=== PATIENT | female | born 1935 | race Caucasian/White ===

== ENCOUNTER → 2019-05-02 | Outpatient (CLI) | payer MEDICARE, OTHER ==
[2019-05-02 11:17] LABS: POTASSIUM 4.5 MMOL/L (3.6-5.0)
[2019-05-02 11:18] LABS: ALBUMIN 4.1 GM/DL (3.2-4.5); BILIRUBIN,TOTAL 0.4 MG/DL (0.1-1.0); CALCIUM 9.3 MG/DL (8.5-10.1); CREATININE SERUM 1.09 MG/DL (0.60-1.30); TOTAL PROTEIN 7.2 GM/DL (6.4-8.2)
== END ==
LOC: LAB FS 08:22
PROVIDERS: ATTEND Family Medicine
DX: E78.5 Hyperlipidemia, unspecified (principal); E11.9 Type 2 diabetes mellitus without complications
CPT/HCPCS: 36415; 80053; 80061; 83036

== ENCOUNTER → 2019-09-23 | Outpatient (CLI) | payer MEDICARE, OTHER ==
[2019-09-23 09:00] LABS: BILIRUBIN,TOTAL 0.4 MG/DL (0.1-1.0); CALCIUM 9.5 MG/DL (8.5-10.1); CREATININE SERUM 1.09 MG/DL (0.60-1.30); POTASSIUM 4.8 MMOL/L (3.6-5.0); TOTAL PROTEIN 7.1 GM/DL (6.4-8.2)
[2019-09-23 09:01] LABS: ALBUMIN 3.9 GM/DL (3.2-4.5)
== END ==
LOC: LAB FS 08:00
PROVIDERS: ATTEND Family Medicine
DX: E03.9 Hypothyroidism, unspecified (principal); E11.9 Type 2 diabetes mellitus without complications; E78.5 Hyperlipidemia, unspecified
CPT/HCPCS: 36415; 80053; 80061; 83036; 84443

== ENCOUNTER → 2019-09-25 | Outpatient (CLI) | payer MEDICARE, OTHER ==
--- NOTE | 2019-09-25 11:40 | Diagnostic Imaging Report ---
INDICATION: Shortness of breath EXAM: PA and lateral chest FINDINGS: Heart size and pulmonary vascularity are normal. The lungs are clear. There are no effusions or pneumothoraces. IMPRESSION: 1. Negative chest. Dictated by: Dictated on workstation # [id number]
--- NOTE | 2019-09-25 11:50 | Diagnostic Imaging Report ---
EXAMINATION: Lumbar spine at 1113h. INDICATION: Back pain AP spot lateral and lateral views were obtained. There are no prior studies for comparison. There are bilateral pedicle screws in place at L4 and L5 and there is an interbody device at the L4-L5 level. The orthopedic hardware seems to be in good position. There is narrowing of the disc space at L4-L5. The other intervertebral spaces are fairly well maintained. The lateral view does show mild exaggeration of the normal lordosis of the lumbar spine. The lumbar vertebral body heights are within normal limits. There is a mild compression deformity of superior endplate of T12. I suspect this is long-standing in nature. There is no sign of a paraspinal mass. Surgical wires are seen coursing obliquely over the right upper quadrant. IMPRESSION: 1. There is no evidence for an acute bony abnormality. The mild compression deformity of T12 is most likely long-standing in nature. If previous exams are available they would be helpful for comparison. 2. The fusion of L4 and L5 appears stable. Dictated by: Dictated on workstation # [id number]
== END ==
LOC: RAD FS 10:57
PROVIDERS: ATTEND Family Medicine
DX: M48.061 Spinal stenosis, lumbar region without neurogenic claudication (principal); R06.02 Shortness of breath; M43.26 Fusion of spine, lumbar region
CPT/HCPCS: 71046; 72100

== ENCOUNTER → 2020-02-23 | Outpatient (CLI) | payer MEDICARE, OTHER | LOC: CARD 09:00 | PROVIDERS: ATTEND Internal Medicine Cardiovascular Disease | DX: I10 Essential (primary) hypertension (principal); E11.9 Type 2 diabetes mellitus without complications; M48.061 Spinal stenosis, lumbar region without neurogenic claudication; I70.213 Atherosclerosis of native arteries of extremities with intermittent claudication, bilateral legs; E78.5 Hyperlipidemia, unspecified; I34.0 Nonrheumatic mitral (valve) insufficiency | CPT/HCPCS: 93306 ==

== ENCOUNTER → 2020-03-02 | Outpatient (CLI) | payer MEDICARE, OTHER ==
[~2020-03-02] VITALS: Ht 162 cm; Wt 84.0 kg
[~2020-03-02] MED LIST: CATHETER FLUSH 10 ML SYR IV PRN; REGADENOSON 0.4 MG/5 ML SYR (LEXISCAN) IV ONE
[2020-03-02 08:55] VITALS: BP 177/78
[2020-03-02 09:23] VITALS: BP 177/80
[2020-03-02 09:26] VITALS: BP 189/84
--- NOTE | 2020-03-05 19:05 | STRESS TEST ---
DATE OF SERVICE: 03/02/2020 RESTING AND POST REGADENOSON TECHNETIUM-99M TETROFOSMIN SPECT CT IMAGING ORDERING PHYSICIAN: Dr. Spangler. PRIMARY PHYSICIAN: Dr. Haily Romero. CLINICAL DIAGNOSES: Shortness of breath, hypertension, hyperlipidemia, type 2 diabetes. Baseline images were carried out after injection of 10.89 mCi of technetium-99m Tetrofosmin. This was followed by 0.4 mg regadenoson and 31.2 mCi of technetium-99m Tetrofosmin for stress imaging. The electrocardiogram showed sinus rhythm at baseline. It did not change significantly with regadenoson infusion. The patient tolerated the procedure well. Review of images at rest and following stress does not indicate any distinct perfusion defects consistent with significant myocardial ischemia or infarction. Gated images show normal global left ventricular systolic function with normal regional wall motion. Left ventricular ejection fraction is calculated to be 74%. Left ventricular end diastolic volume is 26 mL. TID is absent (1.03). CONCLUSIONS: 1. No evidence of any significant myocardial ischemia or infarction. 2. Normal regional wall motion. 3. Normal global left ventricular systolic function with a calculated ejection fraction of 74%. Job ID: [id number] DocumentID: [id number] Dictated Date: 03/05/2020 15:17:52 Bonderizer Date: 03/05/2020 19:05:36 Dictated By: DEEDEE SPANGLER MD, MA, FACP, FACC,
== END ==
LOC: CARD 02-24 08:30
PROVIDERS: ATTEND Internal Medicine Cardiovascular Disease
DX: I10 Essential (primary) hypertension (principal); R06.02 Shortness of breath; E78.5 Hyperlipidemia, unspecified; E11.9 Type 2 diabetes mellitus without complications; M48.061 Spinal stenosis, lumbar region without neurogenic claudication; I70.213 Atherosclerosis of native arteries of extremities with intermittent claudication, bilateral legs
CPT/HCPCS: 78452; 93017; A9502

== ENCOUNTER → 2020-04-01 | Outpatient (CLI) | payer MEDICARE, OTHER ==
[2020-04-01 11:05] LABS: ALBUMIN 4.1 GM/DL (3.2-4.5); BILIRUBIN,TOTAL 0.4 MG/DL (0.1-1.0); CALCIUM 9.6 MG/DL (8.5-10.1); CREATININE SERUM 1.12 MG/DL (0.60-1.30); POTASSIUM 4.6 MMOL/L (3.6-5.0); TOTAL PROTEIN 7.1 GM/DL (6.4-8.2)
== END ==
LOC: LAB FS 08:10
PROVIDERS: ATTEND Family Medicine
DX: E11.9 Type 2 diabetes mellitus without complications (principal)
CPT/HCPCS: 36415; 80053

== ENCOUNTER 2020-07-09 06:55 | Emergency (ER) | payer MEDICARE, OTHER ==
[~2020-07-09] VITALS: Ht 162 cm; Wt 79.0 kg
--- NOTE | 2020-07-09 07:15 | ED General ---
General Chief Complaint: Cardiac/General Problems Stated Complaint: HIGH BLOOD PRESSURE Nursing Triage Note: ARRIVED VIA EMS FOR LEFT SIDED NECK PAIN AND HYPERTENSION. Nursing Sepsis Screen: No Definite Risk Source of Information: Patient History of Present Illness Date Seen by Provider: Jul 09, 2020 Time Seen by Provider: 06:52 Initial Comments PT ARRIVES VIA [facility] FROM HOME IN [place], [place] PT WOKE UP AT 0500 THIS AM WITH PAIN BEHIND LEFT EAR, LEFT LATERAL / POSTERIOR NECK, RADIATING DOWN LEFT SHOULDER AND DOWN LEFT ARM TOOK 2 ALEVE AND 2 BABY ASPIRIN AND METOPROLOL 25 MG AT 0500 PT HAS LONGSTANDING HYPERTENSION AND HAS BEEN PRESCRIBED METOPROLOL, BUT NEVER TAKES IT NO PARESTHESIAS OR MOTOR DEFICITS NO VISION CHANGES NO NAUSEA/VOMITING/DIARRHEA NO CHEST PAIN NO PALPITATIONS HAS SOME SHORTNESS OF BREATH ON EXERTION NO DIZZINESS NO SWEATS NO SWELLING IN LEGS/ FEET OR PAIN IN CALVES HAS HAD URINARY FREQUENCY AND SMALL AMOUNTS THIS AM SINCE WAKING NO FEVER OR RECENT ILLNESS DENIES ANY COVID-19 SYMPTOMS OR KNOWN EXPOSURE HAS NOT HAD COVID-19 VACCINE PCP: DR. MARK, IN [place] HAS SEEN DR. SAXENA IN PAST--STATES SHE "DOESN'T HAVE HEART PROBLEMS" Allergies and Home Medications Allergies Coded Allergies: oxycodone (Verified Allergy, Mild, 07/09/20) NAUSEA Vrkojcq-Lnt-Qnv Reductase Inhibitor (Verified Allergy, Unknown, 07/09/20) hydromorphone (Verified Allergy, Unknown, 07/09/20) "FELT TERRIBLE" meperidine (Verified Allergy, Unknown, 07/09/20) Home Medications Naproxen 500 Mg Tablet., 500 MG PO BID Prescribed by: MARCO ANTONIO URIBE on 07/09/20820 Sulfamethoxazole/Trimethoprim 1 Each Tablet, 1 EACH PO BID Prescribed by: MARCO ANTONIO URIBE on 07/09/20820 Patient Home Medication List Home Medication List Reviewed: Yes Review of Systems Review of Systems Constitutional: no symptoms reported; No chills, No diaphoresis, No dizziness, No fever, No malaise, No weakness EENTM: other (PAIN BEHIND LEFT EAR); No blurred vision, No double vision, No eye pain, No nose congestion, No throat pain Respiratory: No cough; dyspnea on exertion; No orthopnea, No short of breath Cardiovascular: No chest pain, No edema, No syncope Gastrointestinal: no symptoms reported; No abdominal pain, No diarrhea, No nausea, No vomiting Genitourinary: see HPI; No dysuria; frequency Musculoskeletal: see HPI, neck pain Skin: no symptoms reported Psychiatric/Neurological: See HPI; Denies Numbness, Denies Paresthesia, Denies Seizure, Denies Tingling, Denies Weakness Hematologic/Lymphatic: No Symptoms Reported Immunological/Allergic: no symptoms reported Past Yorrrfp-Tsjtjy-Bxxdtg Hx Past Med/Social Hx: Reviewed and Corrections made Patient Social History Alcohol Use: Denies Use Drug of Choice: DENIES Smoking Status: Never a Smoker Recent Infectious Disease Expo: No Recent Hopitalizations: No Past Medical History Surgeries: Yes Joint Replacement, Orthopedic Respiratory: No Cardiac: Yes High Cholesterol, Hypertension Neurological: No 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 SAXENA 03/02/20 CONCLUSIONS: 1. No evidence of any significant myocardial ischemia or infarction. 2. Normal regional wall motion. 3. Normal global left ventricular systolic function with a calculated ejection fraction of 74%. Physical Exam Vital Signs Vital Signs - First Documented 07/09/20 06:55 Temp 37.0 Pulse 96 Resp 16 B/P (MAP) 245/116 (159) Pulse Ox 95 O2 Delivery Room Air Capillary Refill : Less Than 3 Seconds Height, Weight, BMI Height: '" Weight: lbs. oz. kg; 30.00 BMI Method: General Appearance: No Apparent Distress, WD/WN, Other (AMBULATES ON HER OWN TO BATHROOM ON ARRIVAL) HEENT: PERRL/EOMI, TMs Normal, Normal ENT Inspection, Pharynx Normal, Moist Mucous Membranes Neck: Full Range of Motion, Supple; No Carotid Bruit, No JVD; Tender Lateral (TENDERNESS TO LEFT LATERAL NECK--PALPATION DRAMATICALLY REPRODUCES PAIN ) Respiratory: Normal Breath Sounds, No Accessory Muscle Use, No Respiratory Distress Cardiovascular: Regular Rate, Rhythm, No Edema, No JVD, No Murmur, Normal Peripheral Pulses Gastrointestinal: Normal Bowel Sounds, No Organomegaly, No Pulsatile Mass, Non Tender, Soft Back: No CVA Tenderness Extremity: Normal Capillary Refill, Normal Inspection, Normal Range of Motion, Non Tender, No Calf Tenderness, No Pedal Edema Neurologic/Psychiatric: Alert, Oriented x3, No Motor/Sensory Deficits, Normal Mood/Affect, 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 II-XII Norm as Tested; No Abnormal Cerebellar Tests Skin: Normal Color, Warm/Dry; No Rash Progress/Results/Core Measures Suspected Sepsis Recent Fever Within 48 Hours: No Infection Criteria Present: None New/Unexplained Altered Menta: No Sepsis Screen: No Definite Risk SIRS Temperature: Pulse: 96 Respiratory Rate: 16 Laboratory Tests 07/09/20 07:14: White Blood Count 8.6 Blood Pressure 245 /116 Mean: 159 Laboratory Tests 07/09/20 07:14: Creatinine 1.16, Platelet Count 259, Total Bilirubin 0.4 Results/Orders Lab Results Laboratory Tests Test 07/09/20 07:14 07/09/20 07:17 Range/Units White Blood Count 8.6 4.3-11.0 10^3/uL Red Blood Count 5.05 3.80-5.11 10^6/uL Hemoglobin 13.4 11.5-16.0 g/dL Hematocrit 43 35-52 % Mean Corpuscular Volume 85 80-99 fL Mean Corpuscular Hemoglobin 27 25-34 pg Mean Corpuscular Hemoglobin Concent 31 L 32-36 g/dL Red Cell Distribution Width 14.1 10.0-14.5 % Platelet Count 259 130-400 10^3/uL Mean Platelet Volume 10.1 9.0-12.2 fL Immature Granulocyte % (Auto) 1 % Neutrophils (%) (Auto) 72 42-75 % Lymphocytes (%) (Auto) 16 12-44 % Monocytes (%) (Auto) 8 0-12 % Eosinophils (%) (Auto) 3 0-10 % Basophils (%) (Auto) 1 0-10 % Neutrophils # (Auto) 6.2 1.8-7.8 10^3/uL Lymphocytes # (Auto) 1.4 1.0-4.0 10^3/uL Monocytes # (Auto) 0.6 0.0-1.0 10^3/uL Eosinophils # (Auto) 0.3 0.0-0.3 10^3/uL Basophils # (Auto) 0.1 0.0-0.1 10^3/uL Immature Granulocyte # (Auto) 0.1 0.0-0.1 10^3/uL Sodium Level 139 135-145 MMOL/L Potassium Level 4.1 3.6-5.0 MMOL/L Chloride Level 104 98-107 MMOL/L Carbon Dioxide Level 23 21-32 MMOL/L Anion Gap 12 5-14 MMOL/L Blood Urea Nitrogen 26 H 7-18 MG/DL Creatinine 1.16 0.60-1.30 MG/DL Estimat Glomerular Filtration Rate 44 BUN/Creatinine Ratio 22 Glucose Level 158 H 70-105 MG/DL Calcium Level 8.9 8.5-10.1 MG/DL Corrected Calcium 9.0 8.5-10.1 MG/DL Magnesium Level 2.0 1.6-2.4 MG/DL Total Bilirubin 0.4 0.1-1.0 MG/DL Aspartate Amino Transf (AST/SGOT) 19 5-34 U/L Alanine Aminotransferase (ALT/SGPT) 18 0-55 U/L Alkaline Phosphatase 90 40-136 U/L Total Creatine Kinase 56 29-168 U/L Creatine Kinase MB 1.6 <6.6 NG/ML Myoglobin 70.0 10.0-92.0 NG/ML Troponin I < 0.028 <0.028 NG/ML B-Type Natriuretic Peptide 168.7 H <100.0 PG/ML Total Protein 7.1 6.4-8.2 GM/DL Albumin 3.9 3.2-4.5 GM/DL Urine Color YELLOW Urine Clarity CLEAR Urine pH 7.5 5-9 Urine Specific [place] 1.025 H 1.016-1.022 Urine Protein 2+ H NEGATIVE Urine Glucose (UA) NEGATIVE NEGATIVE Urine Ketones NEGATIVE NEGATIVE Urine Nitrite NEGATIVE NEGATIVE Urine Bilirubin NEGATIVE NEGATIVE Urine Urobilinogen 0.2 < = 1.0 MG/DL Urine Leukocyte Esterase NEGATIVE NEGATIVE Urine RBC (Auto) TRACE-I NEGATIVE Urine RBC 0-2 /HPF Urine WBC 5-10 H /HPF Urine Squamous Epithelial Cells 2-5 /HPF Urine Crystals PRESENT H /LPF Urine Calcium Oxalate Crystals RARE H /LPF Urine Bacteria FEW H /HPF Urine Casts NONE /LPF Urine Mucus NEGATIVE /LPF Urine Culture Indicated YES My Orders Orders - MARCO ANTONIO URIBE DO Ed Iv/Invasive Line Start (07/09/20 06:56) Ekg Tracing (07/09/20 06:56) Monitor-Rhythm Ecg Trace Only (07/09/20 06:56) Cbc With Automated Diff (07/09/20 06:56) Comprehensive Metabolic Panel (07/09/20 06:56) Magnesium (07/09/20 06:56) Ua Culture If Indicated (07/09/20 06:56) Ct Head/Cervical Spine Wo (07/09/20 06:56) Chest 1 View, Ap/Pa Only (07/09/20 06:56) BNP (07/09/20 07:22) Creatine Kinase (07/09/20 07:22) Creatine Kinase Mb (07/09/20 07:22) Myoglobin Serum (07/09/20 07:22) Troponin I (07/09/20 07:22) Urine Culture (07/09/20 07:17) Ketorolac Injection (Toradol Injection) (07/09/20 08:15) Hydralazine Injection (Apresoline Inject (07/09/20 08:15) Hydralazine Injection (Apresoline Inject (07/09/20 08:30) Medications Given in ED Current Medications Medications Dose Ordered Sig/Naya Route Start Time Stop Time Status Last Admin Dose Admin Hydralazine HCl 5 mg ONCE ONCE IV 07/09/20 08:30 07/09/20 08:31 DC 07/09/20 08:22 5 MG Ketorolac Tromethamine 30 mg ONCE ONCE IVP 07/09/20 08:15 07/09/20 08:16 DC 07/09/20 08:22 30 MG Vital Signs/I&O 07/09/20 07/09/20 06:55 08:44 Temp 37.0 Pulse 96 75 Resp 16 16 B/P (MAP) 245/116 (159) 177/79 Pulse Ox 95 98 O2 Delivery Room Air Room Air Capillary Refill : Less Than 3 Seconds Blood Pressure Mean: 159 Progress Note : Progress Note BP STARTING TO COME DOWN ON IT'S OWN, GIVEN HYDRALAZINE 5 MG IV, BP STILL ELEVATED AT 178 SYSTOLIC GIVEN TORADOL FOR PAIN WITH IMPROVEMENT NO DETERIORATION IN PT'S CONDITION DURING ER STAY ECG Initial ECG Impression Date: Jul 09, 2020 Initial ECG Impression Time: 07:10 Initial ECG Rate: 86 Initial ECG Rhythm: Normal Sinus Diagnostic Imaging Comments CXR--PER RADIOLOGIST REP0RT AT 0750 FINDINGS: Heart size and vasculature stable. Calcification at the aortic arch. The lungs are clear with no consolidating infiltrate. Small calcified granuloma right midlung. There is no significant effusion or pneumothorax. IMPRESSION: 1. Negative appearing portable chest CT HEAD/CERVICAL SPINE--PER RADIOLOGIST REPORT AT 0812 Findings: Head CT: There is no evidence of acute cerebral infarct, intracranial hemorrhage, or gross mass effect. The brain parenchymal volume appears appropriate for patient's age. There are small patchy areas of low-attenuation white matter changes involving both cerebral hemispheres, likely representing chronic small vessel ischemic disease. There is normal gomez-white matter distinction. There is no significant midline shift or herniation. There is no evidence of hydrocephalus. The basal cisterns are unremarkable. Postoperative changes to the left zygoma is noted with cerclage wires which all appears chronic with associated bony thickening. The skull, extracranial soft tissue, and orbits are unremarkable. The paranasal sinuses are unremarkable. Temporal bones show no significant abnormality. Cervical spine: There is streak artifact due to patient body habitus which obscures the lower cervical spine region limiting evaluation for subtle abnormalities. There is grade 1 anterolisthesis of C3 on C4 and C4 on C5 with no pars defects seen and likely degenerative. There is severe loss of disk space height with suggestion of diffuse disk bulge with vertebral body spurs seen at the C5-C6 level. There is at least moderate to severe left C5-C6 neural foramen narrowing and no significant central canal narrowing. There is no significant neck soft tissue abnormality. There are groundglass opacification involving upper lung jessica which may be related to atelectasis. Impression: 1: There is no CT evidence of acute intracranial process. There is no intracranial hemorrhage or skull fracture. 2: There is cervical spine degenerative disease with no acute fracture. Reviewed: Reviewed by Me Departure Impression Primary Impression: Neck pain on left side Additional Impressions: Cervical radicular pain Uncontrolled hypertension UTI (urinary tract infection) Degenerative, intervertebral disc, cervical Cervical radiculopathy due to degenerative joint disease of spine Disposition: 01 HOME, SELF-CARE Condition: Improved Departure-Patient Inst. Referrals: MELBA MARK MD (PCP/Family) Primary Care Physician Patient Instructions: Urinary Tract Infection, Adult ED, Generalized Neck Pain (DC), Radiculopathy (DC), DASH Diet, High Blood Pressure (DC) Add. Discharge Instructions: TAKE YOUR METOPROLOL EVERY DAY CONTINUE YOUR REGULAR MEDICATIONS EVERY DAY PRESCRIBED MOIST HEAT TO NECK AT 20 MINUTE INTERVALS FOLLOW UP WITH YOUR DR IN 3-4 DAYS FOR FURTHER CARE, CALL TODAY TO MAKE APPOINTMENT RETURN TO ER IF SYMPTOMS WORSEN All discharge instructions reviewed with patient and/or family. Voiced underst anding. Scripts Naproxen (Naproxen) 500 Mg Tablet. 500 MG PO BID, #20 TAB Prov: MARCO ANTONIO URIBE DO 07/09/20 Sulfamethoxazole/Trimethoprim (Bactrim Ds Tablet) 1 Each Tablet 1 EACH PO BID, #20 TAB Prov: MARCO ANTONIO URIBE DO 07/09/20 MARCO ANTONIO URIBE DO Jul 09, 2020 07:14
[2020-07-09 07:23] LABS: BASOPHILS # (AUTO) 0.1 10^3/uL (0.0-0.1); BASOPHILS % (AUTO) 1 % (0-10); EOSINOPHILS # (AUTO) 0.3 10^3/uL (0.0-0.3); EOSINOPHILS % (AUTO) 3 % (0-10); HEMATOCRIT 43 % (35-52); HEMOGLOBIN 13.4 g/dL (11.5-16.0); LYMPHOCYTES # (AUTO) 1.4 10^3/uL (1.0-4.0); LYMPHOCYTES % (AUTO) 16 % (12-44); MEAN CORPUSCULAR HEMOGLOBIN 27 pg (25-34); MEAN CORPUSCULAR HGB CONC 31 g/dL (32-36); MEAN CORPUSCULAR VOLUME 85 fL (80-99); MEAN PLATELET VOLUME 10.1 fL (9.0-12.2); MONOCYTES # (AUTO) 0.6 10^3/uL (0.0-1.0); MONOCYTES % (AUTO) 8 % (0-12); NEUTROPHILS # (AUTO) 6.2 10^3/uL (1.8-7.8); NEUTROPHILS % (AUTO) 72 % (42-75); PLATELET COUNT 259 10^3/uL (130-400); WHITE BLOOD COUNT 8.6 10^3/uL (4.3-11.0)
[2020-07-09 07:26] LABS: BILIRUBIN,URINE NEGATIVE (NEGATIVE); CLARITY,URINE CLEAR; COLOR,URINE YELLOW; GLUCOSE, URINE (UA) NEGATIVE (NEGATIVE); KETONES,URINE NEGATIVE (NEGATIVE); LEUKOCYTE ESTERASE ,URINE NEGATIVE (NEGATIVE); NITRITE,URINE NEGATIVE (NEGATIVE); PH,URINE 7.5 (5-9); PROTEIN,URINE 2+ (NEGATIVE)
[2020-07-09 07:38] LABS: BACTERIA,URINE FEW /HPF; RBC,URINE 0-2 /HPF
[2020-07-09 07:39] LABS: CALCIUM OXALATE CRYSTALS,UR RARE /LPF
[2020-07-09 07:41] LABS: ALBUMIN 3.9 GM/DL (3.2-4.5)
[2020-07-09 07:42] LABS: POTASSIUM 4.1 MMOL/L (3.6-5.0)
[2020-07-09 07:43] LABS: CALCIUM 8.9 MG/DL (8.5-10.1)
[2020-07-09 07:44] LABS: TOTAL PROTEIN 7.1 GM/DL (6.4-8.2)
[2020-07-09 07:46] LABS: BILIRUBIN,TOTAL 0.4 MG/DL (0.1-1.0)
[2020-07-09 07:47] LABS: CREATININE SERUM 1.16 MG/DL (0.60-1.30)
--- NOTE | 2020-07-09 07:47 | Diagnostic Imaging Report ---
INDICATION: Hypertension. TECHNIQUE: Single view chest 7:30 AM. CORRELATION STUDY: 09/25/2019 FINDINGS: Heart size and vasculature stable. Calcification at the aortic arch. The lungs are clear with no consolidating infiltrate. Small calcified granuloma right midlung. There is no significant effusion or pneumothorax. IMPRESSION: 1. Negative appearing portable chest. Dictated by: Dictated on workstation # [id number]
[2020-07-09 07:48] LABS: CREATINE KINASE 56 U/L (29-168)
[2020-07-09 07:58] LABS: CREATINE KINASE MB 1.6 NG/ML (<6.6)
--- NOTE | 2020-07-09 08:10 | Diagnostic Imaging Report ---
Clinical indication: Patient with hypertension, left-sided neck pain. Patient status post trauma. Exam: Head CT without IV contrast with sagittal and coronal reformations. Axial CT scan of the cervical spine with sagittal and coronal reformations. Auto Exposure Controls were utilized during the CT exam to meet ALARA standards for radiation dose reduction. Comparison: None. Findings: Head CT: There is no evidence of acute cerebral infarct, intracranial hemorrhage, or gross mass effect. The brain parenchymal volume appears appropriate for patient's age. There are small patchy areas of low-attenuation white matter changes involving both cerebral hemispheres, likely representing chronic small vessel ischemic disease. There is normal gomez-white matter distinction. There is no significant midline shift or herniation. There is no evidence of hydrocephalus. The basal cisterns are unremarkable. Postoperative changes to the left zygoma is noted with cerclage wires which all appears chronic with associated bony thickening. The skull, extracranial soft tissue, and orbits are unremarkable. The paranasal sinuses are unremarkable. Temporal bones show no significant abnormality. Cervical spine: There is streak artifact due to patient body habitus which obscures the lower cervical spine region limiting evaluation for subtle abnormalities. There is grade 1 anterolisthesis of C3 on C4 and C4 on C5 with no pars defects seen and likely degenerative. There is severe loss of disk space height with suggestion of diffuse disk bulge with vertebral body spurs seen at the C5-C6 level. There is at least moderate to severe left C5-C6 neural foramen narrowing and no significant central canal narrowing. There is no significant neck soft tissue abnormality. There are groundglass opacification involving upper lung jessica which may be related to atelectasis. Impression: 1: There is no CT evidence of acute intracranial process. There is no intracranial hemorrhage or skull fracture. 2: There is cervical spine degenerative disease with no acute fracture. Dictated by: Dictated on workstation # [id number]
[2020-07-09] MEDS ORDERED: KETOROLAC 30 MG/ML VIAL IVP ONE (08:15)
[2020-07-09] MEDS ORDERED: hydrALAZINE (APESOLINE) 20 MG/ML VIAL IV ONE ×2 (08:15→08:30)
[2020-07-09] MEDS ORDERED: NAPR500T8 PO (08:21)
[2020-07-09] MEDS ORDERED: SULF1TAB35 PO (08:21)
[2020-07-09 08:44] VITALS: BP 177/79
== END 2020-07-09 08:44 | disposition home or self-care (01) ==
LOC: EDUNIT# 06:55 → ER 06:57
DX: M54.12 Radiculopathy, cervical region (principal); I10 Essential (primary) hypertension; N39.0 Urinary tract infection, site not specified; M50.322 Other cervical disc degeneration at C5-C6 level; Z88.5 Allergy status to narcotic agent; Z88.8 Allergy status to other drugs, medicaments and biological substances
CPT/HCPCS: 36415; 70450; 71045; 72125; 80053; 81000; 82550; 82553; 83735; 83874; 83880; 84484; 85025; 87077; 87088; 93005; 93041

== ENCOUNTER → 2020-10-01 | Outpatient (CLI) | payer MEDICARE, OTHER ==
[~2020-10-01] MED LIST changes: -CATHETER FLUSH 10 ML SYR IV PRN; +NAPR500T8 PO; -REGADENOSON 0.4 MG/5 ML SYR (LEXISCAN) IV ONE; +SULF1TAB35 PO
[2020-10-01 09:28] LABS: CREATININE SERUM 1.22 MG/DL (0.60-1.30); POTASSIUM 4.5 MMOL/L (3.6-5.0)
[2020-10-01 09:29] LABS: ALBUMIN 3.9 GM/DL (3.2-4.5); BILIRUBIN,TOTAL 0.4 MG/DL (0.1-1.0); CALCIUM 9.3 MG/DL (8.5-10.1)
== END ==
LOC: LAB FS 08:39
PROVIDERS: ATTEND Family Medicine
DX: E11.9 Type 2 diabetes mellitus without complications (principal); E03.9 Hypothyroidism, unspecified; I10 Essential (primary) hypertension
CPT/HCPCS: 36415; 80053; 80061; 83036; 84443

== ENCOUNTER → 2021-04-06 | Outpatient (CLI) | payer MEDICARE, OTHER ==
[~2021-04-06] MED LIST changes: -SULF1TAB35 PO; +SULF1TAB38 PO
[2021-04-06 11:43] LABS: POTASSIUM 4.4 MMOL/L (3.6-5.0)
[2021-04-06 11:44] LABS: BILIRUBIN,TOTAL 0.4 MG/DL (0.1-1.0); CALCIUM 9.5 MG/DL (8.5-10.1); CREATININE SERUM 1.19 MG/DL (0.60-1.30); TOTAL PROTEIN 7.1 GM/DL (6.4-8.2)
== END ==
LOC: LAB FS 10:26
PROVIDERS: ATTEND Family Medicine
DX: I10 Essential (primary) hypertension (principal); E11.9 Type 2 diabetes mellitus without complications; E03.9 Hypothyroidism, unspecified
CPT/HCPCS: 36415; 80053; 80061; 82043; 83036; 84443

== ENCOUNTER → 2021-10-13 | Outpatient (CLI) | payer MEDICARE, OTHER ==
[2021-10-13 11:45] LABS: BILIRUBIN,TOTAL 0.3 MG/DL (0.1-1.0); CALCIUM 9.8 MG/DL (8.5-10.1); CREATININE SERUM 1.36 MG/DL (0.60-1.30); POTASSIUM 4.9 MMOL/L (3.6-5.0)
[2021-10-13 11:46] LABS: ALBUMIN 4.2 GM/DL (3.2-4.5); TOTAL PROTEIN 7.5 GM/DL (6.4-8.2)
== END ==
LOC: LAB FS 10:38
PROVIDERS: ATTEND Family Medicine
DX: E11.9 Type 2 diabetes mellitus without complications (principal); E03.9 Hypothyroidism, unspecified; F32.9 Major depressive disorder, single episode, unspecified; I10 Essential (primary) hypertension; E78.5 Hyperlipidemia, unspecified; R33.9 Retention of urine, unspecified
CPT/HCPCS: 36415; 80053; 83036; 84443

== ENCOUNTER → 2021-11-17 | Outpatient (CLI) | payer MEDICARE, OTHER ==
[2021-11-17 12:40] LABS: BASOPHILS # (AUTO) 0.1 10^3/uL (0.0-0.1); BASOPHILS % (AUTO) 1 % (0-10); EOSINOPHILS # (AUTO) 0.5 10^3/uL (0.0-0.3); EOSINOPHILS % (AUTO) 6 % (0-10); HEMATOCRIT 38 % (35-52); HEMOGLOBIN 12.4 g/dL (11.5-16.0); LYMPHOCYTES # (AUTO) 2.4 10^3/uL (1.0-4.0); LYMPHOCYTES % (AUTO) 28 % (12-44); MEAN CORPUSCULAR HEMOGLOBIN 27 pg (25-34); MEAN CORPUSCULAR HGB CONC 33 g/dL (32-36); MEAN CORPUSCULAR VOLUME 82 fL (80-99); MEAN PLATELET VOLUME 10.3 fL (9.0-12.2); MONOCYTES # (AUTO) 0.7 10^3/uL (0.0-1.0); MONOCYTES % (AUTO) 8 % (0-12); NEUTROPHILS # (AUTO) 4.7 10^3/uL (1.8-7.8); NEUTROPHILS % (AUTO) 56 % (42-75); PLATELET COUNT 267 10^3/uL (130-400); WHITE BLOOD COUNT 8.3 10^3/uL (4.3-11.0)
[2021-11-17 13:11] LABS: POTASSIUM 4.6 MMOL/L (3.6-5.0)
[2021-11-17 13:12] LABS: BILIRUBIN,TOTAL 0.2 MG/DL (0.1-1.0); CALCIUM 9.5 MG/DL (8.5-10.1); CREATININE SERUM 1.13 MG/DL (0.60-1.30); TOTAL PROTEIN 7.2 GM/DL (6.4-8.2)
--- NOTE | 2021-11-17 13:28 | Diagnostic Imaging Report ---
INDICATION: Shortness of breath. TIME OF EXAM: 12:20 PM Correlation is made with prior chest from 09/25/2019. FINDINGS: There is right convexity thoracic scoliotic curvature. The heart is enlarged. Lungs are clear. No infiltrates are detected. There is no effusion or pneumothorax. A small nodule in the right midlung field appears stable. IMPRESSION: No acute cardiopulmonary process is detected. Dictated by: Dictated on workstation # [id number]
== END ==
LOC: LAB FS 12:07
PROVIDERS: ATTEND Registered Nurse Emergency
DX: I10 Essential (primary) hypertension (principal); R06.02 Shortness of breath
CPT/HCPCS: 36415; 71046; 80053; 83880; 85025